=== PATIENT | female | born 1935 | race Caucasian/White ===

== ENCOUNTER 2018-06-05 16:11 | Emergency (ER) | payer MEDICARE ==
--- NOTE | 2018-06-05 17:04 | ERPHSYRPT ---
- History of Present Illness Time Seen by Provider: 06/05/18 16:54 Source: patient Exam Limitations: no limitations Patient Subjective Stated Complaint: pt states she fell and hrt her elbow a week ago and was at outpt therapy and she was told to come to er to be seen for elbow for the nurse, pt states she has no pain now Triage Nursing Assessment: pt alert, arrived per wc, resp easy, skin w/dp. right elbow has slight swelling and bruising. she has full rom to arm Physician History: 82-year-old white female with history of coronary artery disease, diabetes, bronchitis, CHF, COPD, angina, CHF Arrives with complaint of right elbow pain after falling for one week. Patient apparently was seen at infusion clinic and told the nurse that she was having elbow pain so she was sent to the emergency room. Past medical history includes cataracts, diabetes type 2, bronchitis, congestive heart failure, COPD, sleep apnea, angina, congestive heart failure, hyperlipidemia, high blood pressure, peripheral vascular disease, colitis, gallbladder disease, hemorrhoids, arthritis, fractures, depression, frequent urination and incontinence Past surgical history includes cataracts, cardiac catheter, appendectomy, cholecystectomy, hysterectomy, polyps removed from her cervix, colonoscopy, gallstones in her ducts removed, Walkman heart surgery Occurred: last week (injury one week ago) Method of Injury: fell Quality: constant Severity of Pain-Max: moderate Severity of Pain-Current: mild Extremities Pain Location: elbow: right (pain over right olecranon) Modifying Factors: Improves With: nothing Associated Symptoms: none Allergies/Adverse Reactions: niacin Allergy (Verified 06/05/18 16:29) Hives pioglitazone HCl [From Actos] Allergy (Verified 06/05/18 16:29) Sulfa (Sulfonamide Antibiotics) Allergy (Verified 06/05/18 16:29) Home Medications: Aspirin 81 gm Chew [Baby Aspirin 81 mg Chew] 81 mg PO DAILY 09/01/13 [ History] Clonazepam 0.5 mg [Klonopin 0.5 MG] 0.5 mg PO BID 09/01/13 [History] Diltiazem HCl 240 mg [Cardizem CD 240 MG] 240 mg PO DAILY 09/01/13 [ History] Furosemide 80 mg [Lasix 80 mg] 40 mg PO UD 09/01/13 [History] Isosorbide Mononitrate 30 mg [Imdur 30 MG] 60 mg PO DAILY 09/01/13 [History ] Magnesium Oxide 400 mg PO BID 09/01/13 [History] Omeprazole 20 MG [Prilosec 20 mg] 40 mg PO DAILY 09/01/13 [History] Potassium Chloride 10 Meq Tab* [Klor Con 10 MEQ] 20 meq PO UD 09/01/13 [ History] Sertraline HCl 50 mg [Zoloft 50 mg Tablet] 100 mg PO DAILY 09/01/13 [History ] Spironolactone 25 mg [Aldactone 25 MG] 25 mg PO DAILY 09/01/13 [History] Albuterol Sulfate [Proair Hfa] 2 puff IH QIDPRN PRN 05/22/18 [History] Atorvastatin Calcium [Lipitor] 10 mg PO DAILY 05/22/18 [History] Clopidogrel Bisulfate 75 mg [PLAVIX 75 MG Tablet] 75 mg PO DAILY 05/22/18 [History] Famotidine [Pepcid] 40 mg PO HS 05/22/18 [History] Insulin Aspart [NovoLOG Insulin] 1 unit SQ UD PRN 05/22/18 [History] Insulin Detemir [Levemir] 24 unit SQ HS 05/22/18 [History] Melatonin 1 mg PO DAILY 05/22/18 [History] Mirtazapine 15 mg PO HS 05/22/18 [History] Multivitamin [Multivitamins] 1 each PO DAILY 05/22/18 [History] Polyethylene Glycol 3350 [Miralax] 17 gm PO UD 05/22/18 [History] Ranolazine 500 MG [Ranexa 500 MG] 500 mg PO HS 05/22/18 [History] Vitamin B Complex [Super B [id number]] 1 each PO DAILY 05/22/18 [History] Hx Tetanus, Diphtheria Vaccination/Date Given: Yes Hx Influenza Vaccination/Date Given: Yes Hx Pneumococcal Vaccination/Date Given: Yes Immunizations Up to Date: Yes - Review of Systems Constitutional: No Fever, No Chills Eyes: No Symptoms Ears, Nose, & Throat: No Symptoms Respiratory: No Cough, No Dyspnea Cardiac: No Chest Pain, No Edema, No Syncope Abdominal/Gastrointestinal: No Abdominal Pain, No Nausea, No Vomiting, No Diarrhea Genitourinary Symptoms: No Dysuria Musculoskeletal: Fall, Other (right elbow pain for 1 week) Skin: No Rash Neurological: No Dizziness, No Focal Weakness, No Sensory Changes Psychological: No Symptoms Endocrine: No Symptoms All Other Systems: Reviewed and Negative - Past Medical History Pertinent Past Medical History: Yes Neurological History: No Pertinent History ENT History: Cataracts Cardiac History: Angina, Congestive Heart Failure, Coronary Artery Disease, High Cholesterol, Hypertension, Peripheral Vascular Disease Respiratory History: Bronchitis, CHF, COPD, Sleep Apnea Endocrine Medical History: Diabetes Type II Musculoskeletal History: Arthritis, Fractures GI Medical History: Colitis, Gallbladder Disease, Hemorrhoids, Hernia, Polyps History: Other Psycho-Social History: Depression Female Reproductive Disorders: No Pertinent History Other Medical History: frequency, urgency and incontinence. 30% renal function - Past Surgical History Past Surgical History: Yes Neuro Surgical History: No Pertinent History Cardiac: Cardiac Catheterization, Other Respiratory: No Pertinent History Gastrointestinal: Appendectomy, Cholecystectomy Genitourinary: No Pertinent History Musculoskeletal: No Pertinent History Female Surgical History: Hysterectomy Other Surgical History: polyp removal - cancer. bladder cyst removal. colonoscopy. gall stones in ducts removed. walkman heart surgery - Social History Smoking Status: Never smoker Exposure to second hand smoke: No Drug Use: none Patient Lives Alone: No - Female History Hx Last Menstrual Period: post Hx Now: No - Nursing Vital Signs Nursing Vital Signs: Initial Vital Signs Temperature 97.2 F 06/05/18 16:24 Pulse Rate 59 L 06/05/18 16:24 Respiratory Rate 18 06/05/18 16:24 Blood Pressure 168/70 06/05/18 16:24 O2 Sat by Pulse Oximetry 96 06/05/18 16:24 Pain Scale Pain Intensity 0 - Physical Exam General Appearance: alert Eyes, Ears, Nose, Throat Exam: moist mucous membranes Neck Exam: normal inspection, non-tender, supple Cardiovascular/Respiratory Exam: chest non-tender, normal breath sounds, regular rate/rhythm, no respiratory distress Abdominal Exam: non-tender, No guarding Back Exam: normal inspection, No vertebral tenderness Shoulder Exam: normal inspection, non-tender, no evidence of injury, normal ROM Elbow/Forearm Exam: normal ROM, No normal inspection (pain with palpation over her olecranon right elbow) Wrist Exam: normal inspection, non-tender, no evidence of injury, normal ROM Hand Exam: normal inspection, non-tender, no evidence of injury, normal ROM Neuro/Tendon Exam: normal sensation, normal motor functions Mental Status Exam: alert, oriented x 3, cooperative Skin Exam: normal color, warm, dry SpO2 Interpretation: normal (96%) SpO2: 96 - Course Nursing assessment & vital signs reviewed: Yes - Radiology Exams Left Elbow X-ray Interpretation: Interpreted by me (no fractures no subluxation) Ordered Tests: Active Orders 24 hr Category Date Time Status ELBOW (MINIMUM 3 VIEWS) Stat Exams 06/05/18 17:13 Taken - Progress Progress: improved Progress Note: 06/05/18 17:32 X-ray right elbow no fracture no subluxation (my read). Will give patient Tylenol for pain she states she has some at home we'll also have nurse apply some Peter wrap to her elbow. - Departure Time of Disposition: 17:33 Departure Disposition: Home Clinical Impression: Pain in right elbow Contusion of right elbow Qualifiers: Encounter type: initial encounter Qualified Code(s): S50.01XA - Contusion of right elbow, initial encounter Condition: Fair Critical Care Time: No Referrals: ANGIE AU MD [Primary Care Provider] - Additional Instructions: Return home. Cold packs right elbow 24-48 hours. Tylenol every 4 hours as needed for pain. Follow-up with your family doctor if symptoms worse, no better in 48 hours, or persist longer than one week. Return for acute distress or for severe symptoms. Your x-rays have been preliminarily read they will be reread tomorrow you will be contacted if any discrepancies are noted.
[2018-06-05] MEDS ORDERED: TYLENOL 325 MG PO ONE (17:34)
[2018-06-05] MEDS ORDERED: TYLENOL 325 MG ONE (17:41)
[2018-06-05 17:57] VITALS: BP 157/84; PULSE 60; O2SAT 95
--- NOTE | 2018-06-06 08:45 | XRAY ---
Indication: Pain following fall. Comparison: None 3 views of the right elbow demonstrates tiny spurring of the olecranon and coronoid process. No other bony, articular, or soft tissue abnormalities.
== END 2018-06-05 17:59 | disposition home or self-care (01) ==
LOC: ED 16:11
DX: M25.521 Pain in right elbow (principal); S50.01XA Contusion of right elbow, initial encounter; I50.9 Heart failure, unspecified; E78.00 Pure hypercholesterolemia, unspecified; I73.9 Peripheral vascular disease, unspecified; F32.9 Major depressive disorder, single episode, unspecified; Z79.899 Other long term (current) drug therapy; I25.10 Atherosclerotic heart disease of native coronary artery without angina pectoris; J44.9 Chronic obstructive pulmonary disease, unspecified; E11.9 Type 2 diabetes mellitus without complications; E78.5 Hyperlipidemia, unspecified; M19.90 Unspecified osteoarthritis, unspecified site
CPT/HCPCS: 73080; 96365; 99211; 99284; J1756; A9270-GY